=== PATIENT | female | born 1945 | race American Indian/Alaskan Native ===

== ENCOUNTER 2024-01-19 14:29 | Observation (INO) | payer BC, OTHER ==
[~2024-01-19] VITALS: Ht 160 cm; Wt 91.7 kg
[2024-01-19 15:00] VITALS: BP_SYST 172; PULSE 87; RESP 18; TEMP 97.8; O2SAT 96
[2024-01-19] MEDS: KETOROLAC TROMETHAMINE 30 MG VIAL IVP ONE (16:00)
[2024-01-19 16:41] LABS: INFLUENZA TYPE A Negative (NEGATIVE); INFLUENZA TYPE B NEGATIVE (NEGATIVE)
[2024-01-19 16:42] LABS: EOSINOPHILS # (AUTO) 0.2 K/uL (0.0-0.4); LYMPHOCYTES # (AUTO) 1.9 K/uL (1.0-5.5); MONOCYTES # (AUTO) 0.4 K/uL (0.0-1.0); NEUTROPHILS # (AUTO) 3.4 K/uL (1.8-7.7)
[2024-01-19 16:48] LABS: BASOPHILS % (AUTO) 0.7 % (0.0-2.0); EOSINOPHILS % (AUTO) 3.2 % (0.0-4.0); HEMATOCRIT 42.4 % (36-48); HEMOGLOBIN 14.8 g/dL (12.0-16.0); LYMPHOCYTES % (AUTO) 32.1 % (20.5-51.5); MEAN CORPUSCULAR HEMOGLOBIN 33 pg (27-31); MEAN CORPUSCULAR HGB CONC 35 % (32-36); MEAN CORPUSCULAR VOLUME 94 fL (79.0-98.0); MONOCYTES % (AUTO) 6.9 % (1.7-9.3); NEUTROPHILS % (AUTO) 57.1 % (40.0-70.0); PLATELET COUNT (AUTO) 209 K/uL (130-430); RED BLOOD CELL COUNT(AUTO) 4.49 MIL/uL (4.2-6.2); RED CELL DISTRIBUTION WIDTH 13.2 % (9.0-15.0); WHITE BLOOD COUNT (AUTO) 5.9 K/uL (4.8-10.8)
[2024-01-19 16:51] LABS: ANION GAP 5 (5-15); CALCIUM 9.2 mg/dL (8.4-11.0); CARBON DIOXIDE 34 mmol/L (23-29); CHLORIDE 101 mmol/L (98-107); CREATININE 0.81 mg/dL (0.55-1.30); FREE T4 (FREE THYROXINE) 0.8 ng/dl (0.8-1.5); GLUCOSE 153 mg/dL (74-106); POTASSIUM 3.4 mmol/L (3.5-5.1); SODIUM SERUM 140 mmol/L (136-145); THYROID STIMULATING HORMONE 2.15 uIu/mL (0.36-3.74); UREA NITROGEN, BLOOD 13 mg/dL (8-21)
[2024-01-19] MEDS: LORazepam 2 MG/ML VIAL IVP ONE (21:30)
[2024-01-19 22:48] VITALS: BP_SYST 142; PULSE 73; RESP 18; TEMP 97.5; O2SAT 97
[2024-01-20] VITALS: BP_SYST 163; PULSE 77; RESP 18; TEMP 97.3; O2SAT 95
[2024-01-20] MEDS: METOPROLOL SUCCINATE 25 MG TAB.SR.24H (TOPROL XL) PO ONE (01:37)
[2024-01-20] MEDS: DIPHENHYDRAMINE HCL 50 MG CAPSULE PO ONE (01:37)
[2024-01-20 04:18] VITALS: BP_SYST 143; PULSE 94; RESP 18; TEMP 97.8; O2SAT 96
[2024-01-20 08:07] VITALS: BP_SYST 153; PULSE 60; RESP 18; TEMP 97.7; O2SAT 96
[2024-01-20] MEDS: METOPROLOL TARTRATE 25 MG TABLET PO SCH (08:38)
[2024-01-20] MEDS: APIXABAN 2.5 MG TABLET PO SCH (08:38)
[2024-01-20 11:18] VITALS: BP_SYST 149; PULSE 75; RESP 16; TEMP 97.5; O2SAT 93
[2024-01-20 15:08] VITALS: BP_SYST 147; PULSE 76; RESP 16; TEMP 97.1; O2SAT 96
[2024-01-20 20:00] VITALS: BP_SYST 140; PULSE 65; RESP 16; TEMP 97.8; O2SAT 96
[2024-01-20] MEDS: DOXYCYCLINE HYCLATE 100 MG TABLET PO SCH (21:17)
[2024-01-21 01:36] VITALS: BP_SYST 143; PULSE 72; RESP 16; TEMP 98; O2SAT 96
[2024-01-21] MEDS ORDERED: HYDR12.585 PO (10:37)
[2024-01-21] MEDS ORDERED: METO25TA6 PO (10:37)
[2024-01-21] MEDS ORDERED: APIX5TAB PO (10:37)
[2024-01-21] MEDS ORDERED: DOXY100C5 PO (10:37)
[2024-01-21 11:04] VITALS: BP_SYST 135; PULSE 82; RESP 20; TEMP 97.4; O2SAT 96
[2024-01-21 11:10] VITALS: BP_SYST 155; PULSE 73; RESP 16; TEMP 97.9; O2SAT 95
== END 2024-01-21 11:19 | disposition home or self-care (01) ==
LOC: SED 14:29 → STU 19:55 → INTOOBSV 19:55 → STU 21:55
PROVIDERS: ADMIT Specialist; ATTEND Specialist
DX: I48.91 Unspecified atrial fibrillation (principal); Z20.822 Contact with and (suspected) exposure to COVID-19; I11.9 Hypertensive heart disease without heart failure; R00.2 Palpitations; E03.9 Hypothyroidism, unspecified; E78.5 Hyperlipidemia, unspecified; E66.01 Morbid (severe) obesity due to excess calories; Z68.35 Body mass index [BMI] 35.0-35.9, adult; Z79.899 Other long term (current) drug therapy; Z86.2 Personal history of diseases of the blood and blood-forming organs and certain disorders involving the immune mechanism
CPT/HCPCS: 96374; 80048; 83880; 84439; 83735; 84443; 85025; 84484; 36415; 93005; 71045; 99285; 87804 ×2; 87426; 93306; J1885; G0378 ×3; Q0163